=== PATIENT | female | born 1995 ===

== ENCOUNTER 2019-01-25 13:28 | Emergency (ER) | payer OTHER ==
[2019-01-25 13:55] VITALS: BP 138/82
--- NOTE | 2019-01-25 14:10 | UC ---
Neck Pain HPI - HPI Summary HPI Summary: REports moderate neck pain mostly on R side this AM. SHe woke up like this. took 2 advil and did not get much relief. pt states this happened about 1 year ago. - History of Current Complaint Chief Complaint: UCUpperExtremity Stated Complaint: NECK PAIN Time Seen by Provider: 01/25/19 13:53 Hx Obtained From: Patient Pain Intensity: 8 Pain Scale Used: 0-10 Numeric Aggravating Factors: Nothing Alleviating Factors: Nothing - Allergies/Home Medications Allergies/Adverse Reactions: Allergies Allergy/AdvReac Type Severity Reaction Status Date / Time No Known Allergies Allergy Verified 01/25/19 13:55 Home Medications: Home Medications Ibuprofen [Advil] 400 mg PO ONCE PRN 01/25/19 [History Confirmed 01/25/19] PMH/Surg Hx/FS Hx/Imm Hx - Additional Past Medical History Additional PMH: no chronic issues. Previously Healthy: Yes - Surgical History Surgical History: None - Family History Known Family History: Positive: Non-Contributory - Social History Alcohol Use: Rare Substance Use Type: None Smoking Status (MU): Never Smoked Tobacco Review of Systems All Other Systems Reviewed And Are Negative: Yes Constitutional: Negative: Fever Skin: Negative: Rash ENT: Negative: Sore Throat, Ear Ache, Other - denies trouble swallowing. Respiratory: Negative: Shortness Of Breath Physical Exam Triage Information Reviewed: Yes Appearance: Well-Appearing Vital Signs: Initial Vital Signs Temp 97.1 F 01/25/19 13:51 Pulse 87 01/25/19 13:51 Resp 18 01/25/19 13:51 BP 138/82 01/25/19 13:51 Pulse Ox 99 01/25/19 13:51 Vital Signs Reviewed: Yes ENT: Positive: Pharynx normal Neck: Positive: No Lymphadenopathy, Nuchal Rigidity Respiratory: Positive: No respiratory distress Neck Pain Course/Dx - Course Course Of Treatment: R sided neck stiffness since this AM. Has had a similar episode in the past. Not thought to be infectious. MSK in etiology and will tx w/ muscle relaxer. ADvised daily neck stretches and ways to manage stress. vitals good. - Differential Dx/Diagnosis Differential Dx/HQI/PQRI: Torticollis, Other Provider Diagnosis: Torticollis Discharge ED - Sign-Out/Discharge Documenting (check all that apply): Patient Departure All imaging exams completed and their final reports reviewed: No Studies - Discharge Plan Condition: Good Disposition: HOME Prescriptions: Cyclobenzaprine (NF) [Cyclobenzaprine 5 MG (NF)] 5 mg PO TID PRN 10 Days #30 tab PRN Reason: Spasms Patient Education Materials: Spasmodic Torticollis (ED) Forms: *School Release Referrals: No Primary Care Phys,NOPCP [Primary Care Provider] - Additional Instructions: Please remember to stretch your neck often. aND DON'T FORGET TO MANAGE STRESS WITH EITHER EXERCISE OR NECK STRETCHES DAILY. - Billing Disposition and Condition Condition: GOOD Disposition: Home
== END 2019-01-25 14:30 | disposition home or self-care (01) ==
LOC: UCEAST 13:28
DX: M43.6 Torticollis (principal)
CPT/HCPCS: 99212; G0463